=== PATIENT | male | born 1970 | race Caucasian/White ===

== ENCOUNTER → 2020-05-12 | Outpatient (CLI) | payer BC, SELFPAY | END | disposition home or self-care (01) | LOC: MTDU 17:40 | PROVIDERS: PCP Family Medicine; Referring Provider Nurse Practitioner Family; Visit Provider Nurse Practitioner Family | DX: Z20.828 Contact with and (suspected) exposure to other viral communicable diseases (principal) | CPT/HCPCS: 87635; C9803; U0003 ==

== ENCOUNTER 2022-10-15 15:24 | Emergency (ER) | payer BC, SELFPAY ==
[2022-10-15 15:25] VITALS: BP 128/93; PULSE 105; RESP 14; TEMP 36.1; O2SAT 97; BMI 26.9
--- NOTE | 2022-10-15 15:31 | NURSING ---
NO OLD EKGS
--- NOTE | 2022-10-15 15:56 | EKG12_ITS ---
Test Reason : PALPS Blood Pressure : / mmHG Vent. Rate : 093 BPM Atrial Rate : 093 BPM P-R Int : 150 ms QRS Dur : 102 ms QT Int : 368 ms P-R-T Axes : 055 009 042 degrees QTc Int : 457 ms Sinus rhythm with occasional Premature ventricular complexes Otherwise normal ECG No previous ECGs available Confirmed by KAN GUAMAN, GRETEL ([id number]), commissioning editor NICHOLE FINN ([id number]) on 10/18/2022 9:04:25 AM Referred By: THELMA/JULIO Confirmed By:GRETEL OMER MD
[2022-10-15 16:11] VITALS: BP 139/93; PULSE 95; RESP 15
--- NOTE | 2022-10-15 16:20 | EDS_ITS ---
HPI History of Present Illness Chief Complaint: Palpitations Detail of Chief Complaint: Skipped beats Informant: patient and spouse/S.O. Onset/Context/Timing Onset: Today (At approximately 1400) Context: Sudden Onset Timing: Intermittent Quality: Skipped beats Location: Sitting at home Current Severity: Gone Maximum Severity: Moderate Worsened by: Nothing Relieved by: Nothing Associated Symptoms Associated Symptoms: Possibly shortness of breath Narrative Narrative: Patient is a middle-age male with history of migraine headaches, depression, hyp erlipidemia who presents because of skipped beats. He reports single episode 2 years ago and 1 month ago. Based on description patient had a vasovagal episode. He did not seek medical attention for either event. He is on no new medication. Records from outside facility, [facility] were reviewed. Patient denies headache, visual, ocular auditory symptoms. Patient denies troub le speech or swallowing. Patient denied chest discomfort. Patient reported he felt he was not get history of VTE. He has no risk factors. He denies leg pain, swelling discoloration. He denies black or maroon-colored stool. He is not on an antiplatelet or anticoagulant. Patient has not had any recent alcohol ingestion. He is not had any significant caffeine ingestion. Per review of old records he has never had a cardiac catheterization or stress test. Prior similar symptoms: No Recent Illness/Hospitalization: No PFSH PFSH Medical History HLD (hyperlipidemia) Migraine RLS (restless legs syndrome) Home Medications amitriptyline 50 mg tablet mg 10/15/22 [History Last Taken Unknown] pravastatin 40 mg tablet mg 10/15/22 [History Last Taken Unknown] rizatriptan 10 mg tablet mg 10/15/22 [History Last Taken Unknown] sertraline 50 mg tablet mg 10/15/22 [History Last Taken Unknown] Allergy/AdvReac Type Severity Reaction Status Date / Time No Known Allergies Allergy Verified 10/15/22 15:29 Social History (Updated 10/15/22 @ 16:[address] Mariano Mahmood MD) household members: spouse Smoking Status: Never smoker substance use type: does not use ROS ROS ED Constitutional Constitutional ED: Denies chills, fever(s), subjective, sweats or weight loss Eyes Eyes: Denies blurry vision, change in vision or diplopia ENT ENT ED: Denies ear pain, rhinorrhea or sore throat Cardiovascular Cardiovascular: Reports palpitations; Denies chest pain, orthopnea, paroxysmal nocturnal dyspnea or racing heartbeat Respiratory/Chest Respiratory/Chest: Denies cough, dyspnea, dyspnea on exertion, orthopnea or paroxysmal nocturnal dyspnea Gastrointestinal Gastrointestinal: Denies diarrhea, melena, nausea or vomiting Genitourinary Genitourinary ED: Denies dysuria, hematuria or urinary frequency Musculoskeletal Musculoskeletal: Reports neck pain and other Details: Patient has chronic neck pain. ; Denies arthralgias, back pain or myalgias Integumentary Denies rash Neurologic Neurologic: Denies headache(s), paresthesias or weakness Hematologic/Lymphatic Hematologic/Lymphatic: Reports systems reviewed and no addt'l complaints, except as documented EXAM Physical Exam Const Vital Signs: 10/15/22 15:25 10/15/22 16:11 10/15/22 16:11 Temperature 97 F L Temperature Source Temporal Pulse Rate 105 H 95 Respiratory Rate 14 15 Respiratory Effort Normal Non-Labored Respiratory Pattern Normal Blood Pressure 128/93 H 139/93 H Blood Pressure Mean 104 108 Pulse Ox 97 Oxygen Delivery Method Room Air Room Air Positive well nourished and well developed General Appearance ED: well developed and NAD; Negative for cyanotic, diaph oretic or pallor HEENT HEENT Narrative: Head is atraumatic normocephalic. Ears normal. Nares patent. Mucosa moist. Teeth normal. Eyes PERRL and EOMs intact bilaterally General Eye ED: Negative for pale conjunctiva or scleral icterus Neck no lymphadenopathy, supple and no JVD Neck Narrative: There is no carotid bruits noted. Trachea is midline. Chest Wall palpation of chest normal Resp normal respiratory effort and clear to auscultation bilaterally Cardio regular rate, regular rhythm, S1 normal heart sound, S2 normal heart sound and no murmurs GI normal to inspection, nondistended, normoactive bowel sounds, non-distended and no masses; Negative for hepatosplenomegaly Extremity normal to inspection Extremity Narrative: There is no asymmetry, swelling, discoloration, leg vein distention, palpable cords or tenderness along the distribution of the deep venous system. General Extremety ED: Negative for edema or tenderness General Extremity: Negative for edema Neuro oriented x3, CN's II-XII intact bilaterally and no sensory deficits noted Sensorium / Orientation: alert Psych mental status grossly normal Skin no rashes or lesions noted, no wounds and skin turgor normal General Skin Exam: Negative for jaundice or pallor MDM MDM MDM Narrative Medical decision making narrative: Patient with skipped beats. Suspect patient is having premature ventricular beats. While examining patient monitor was reviewed and he had an occasional PAC noted. The twelve-lead reveals a premature ventricular complex. Will obtain a basic metabolic panel to assess electrolytes and specifically potassium. Patient was placed on a monitor to determine if there is any other abnormality. EKG was obtained to determine if there is any evidence of cardiac ischemia, abnormal SC interval or QRS complex to suggest a preexcitation syndrome. Lab Data Attestation: I reviewed the patient's lab results. Lab results narrative: Potassium is normal. CO2 anion gap is normal. Blood sugar is elevated 139. Patient was informed of the elevated blood sugar and to follow-up with his doctor for formal glucose assessment. He was informed that the skipped beats are ventricular premature beats and that nothing needs to be done. Labs: Laboratory Results - last 24 hr 10/15/22 16:08 Sodium 142 Potassium 3.5 Chloride 107 Carbon Dioxide 27.0 Anion Gap 8 BUN 16 Creatinine 0.95 Estim Creat Clear Calc 100.46 Est GFR (MDRD) Af Amer 106 Est GFR (MDRD) Non-Af 87 BUN/Creatinine Ratio 16.8 Glucose 139 H Calcium 9.0 Rhythm Strip Rhythm Strip: Sinus Rhythm Rate: 88 Ectopy: PAC(s) (Occasional) EKG Initial EKG: Attestation: I personally reviewed and interpreted this EKG as follows: Interpretation: Sinus Rhythm (Rate is 93. There is a premature ventricular beat noted. SC intervals 150 ms. QRS duration 102 ms. QT duration 368 ms. [place] is normal. Other than the premature ventricular beats the EKG is normal. There is no acute ischemic changes.) Discharge Plan Triage Chief Complaint: Palpitations ED Provider: Mariano Mahmood Dx/Rx/DC Orders Clinical Impression: Premature ventricular beats, Atrial premature beats, High blood sugar, Hx of hyperlipidemia Instructions: PVCs, ED Hyperglycemia New Susp Diabetes Prescriptions: No Action pravastatin 40 mg tablet rizatriptan 10 mg tablet amitriptyline 50 mg tablet sertraline 50 mg tablet Primary Care Provider: Adam Jones Referrals: Adam Jones MD [Primary Care Provider] - 5-7 Days Disposition Disposition: Home, Self Care
[2022-10-15 16:29] LABS: Anion Gap 8 (5-15); BUN 16 mg/dL (7-18); BUN/Creat Ratio 16.8 RATIO (10-20); Chloride 107 mmol/L (98-107); Creatinine, Serum 0.95 mg/dL (0.70-1.30); EST Glomerular Filtration Rate 87 mL/min (>60); Est Glom Filt Rate - Afr Amer 106 mL/min (>60); Estimated Creatinine Clearance 100.46 ml/min; Glucose 139 mg/dL (74-106); Potassium 3.5 mmol/L (3.5-5.1); Sodium Level 142 mmol/L (136-145)
== END 2022-10-15 17:08 | disposition home or self-care (01) ==
PROVIDERS: Emergency Provider Emergency Medicine; PCP Family Medicine; Visit Provider Emergency Medicine
DX: I49.3 Ventricular premature depolarization (principal); I49.1 Atrial premature depolarization; R73.9 Hyperglycemia, unspecified; E78.5 Hyperlipidemia, unspecified; G25.81 Restless legs syndrome; Z79.899 Other long term (current) drug therapy
CPT/HCPCS: 80048; 93005; 99284